=== PATIENT | female | born 2000 | race Caucasian/White ===

== ENCOUNTER 2023-01-29 12:56 | Outpatient (OUT) | payer OTHER, SELFPAY ==
[2023-01-29 14:20] LABS: Bilirubin Urine NEGATIVE (NEGATIVE); Blood Urine NEGATIVE (NEGATIVE); Clarity Urine CLEAR (CLEAR); Color Urine LT. YELLOW (YELLOW); Glucose Urine UA NEGATIVE (NEGATIVE); Ketones Urine NEGATIVE (NEGATIVE); Leukocyte Esterase Urine TRACE (NEGATIVE); Nitrite Urine NEGATIVE (NEGATIVE); Protein Urine NEGATIVE (NEG/TRACE); Specific Gravity Urine 1.015 (1.005-1.025); Urobilinogen Urine 0.2 EU/dL (0.2-1.0)
[2023-01-29 14:28] LABS: RBC Urine NONE SEEN #/HPF (0-2); WBC Urine 0-2 #/HPF (NONE SEEN)
--- NOTE | 2023-01-29 14:28 | PC.NURSE ---
Dr. Osman called and updated on patients presentation to hospital for abdominal cramping and lower back pain. patient reports drinking plenty of fluids. urinalysis reported. RN reports monitoring tracing and uterine activity. patient states pain gets worse with movement but is not constant. NORBERT- 03/22/2023
[2023-01-29 14:29] LABS: Bacteria Urine TRACE #/HPF (NONE SEEN); Mucus Urine NONE SEEN (NONE SEEN); Squamous Epithelial Cell Urine RARE #/LPF (NONE/RARE)
--- NOTE | 2023-01-29 14:31 | PC.NURSE ---
Dr. Osman gives orders to discharge patient home. Dr. Osman orders for patient to increase water intake and to start Miralax every day OTC. RN to educate patient.
[2023-01-29 15:04] VITALS: PULSE 70; RESP 18
== END 2023-01-29 15:05 ==
LOC: FBCO 13:03 → FBC 13:08
PROVIDERS: PCP Midwife; Visit Provider Obstetrics & Gynecology
DX: O99.891 Other specified diseases and conditions complicating pregnancy (principal); R10.9 Unspecified abdominal pain; M54.50 Low back pain, unspecified; Z3A.00 Weeks of gestation of pregnancy not specified
CPT/HCPCS: 59025; 81001

== ENCOUNTER 2023-03-19 17:45 | Inpatient (IN) | payer OTHER, SELFPAY ==
[2023-03-19] VITALS (14 sets, daily range): BP systolic 106–145; BP diastolic 54–80; PULSE 73–99; RESP 14–18; TEMP 36.5–36.8
[2023-03-19 19:06] LABS: Hematocrit 34.2 % (36.0-48.0); Hemoglobin 11.4 g/dL (12.0-16.0); Mean Corpuscular HGB Conc 33.3 g/dL (29.9-35.2); Mean Corpuscular Hemoglobin 27.1 pg (26.7-34.0); Mean Corpuscular Volume 81.4 fL (81.0-99.0); Mean Platelet Volume 9.7 fL (9.5-13.5); Platelet Count 250 10^3/uL (150-450); Red Cell Distribution Width 13.7 % (11.0-15.0); White Blood Count 7.8 10^3/uL (4.0-11.0)
[2023-03-19] MEDS: DINOPROSTONE 10 MG VAG INSERT.ER VAGINAL (19:08)
[2023-03-19 19:22] LABS: Amphetamine Screen Urine NEGATIVE (NEGATIVE); Barbiturates Screen Urine NEGATIVE (NEGATIVE); Benzodiazepines Screen Urine NEGATIVE (NEGATIVE); Buprenorphine Screen Urine NEGATIVE (NEGATIVE); Cannabinoid Screen Urine NEGATIVE (NEGATIVE); Cocaine Screen Urine NEGATIVE (NEGATIVE); Methadone Screen Urine NEGATIVE (NEGATIVE); Methamphetamines Screen Urine NEGATIVE (NEGATIVE); Opiate Screen Urine NEGATIVE (NEGATIVE); Oxycodone Screen Urine NEGATIVE (NEGATIVE); Phencyclidine Screen Urine NEGATIVE (NEGATIVE); Tricyclic Antidepressant Urine NEGATIVE (NEGATIVE)
--- NOTE | 2023-03-19 19:31 | W.PC.ACHO ---
Registration Status: ADM IN Primary Language: Beninese Preferred Language: Beninese Active Medications Generic Name Dose Route Start Last Admin Trade Name Jordy PRN Reason Stop Dose Admin Acetaminophen 1,000 mg 03/19/23 17:53 Acetaminophen 500 Mg Tablet PO Q6H PRN Pain Calcium Carbonate 500 mg 03/19/23 17:53 Calcium Carbonate 500 Mg (200mg Elemental) Tab Chew PO TID PRN Acid Reflux Sodium Chloride 1,000 mls @ 125 mls/hr 03/19/23 18:00 Sodium Chloride 0.9% 1,000 Ml IV .Q8H ZURDO Ampicillin 2,000 mg/ Sodium 100 mls @ 200 mls/hr 03/20/23 06:00 Chloride IV 03/20/23 06:29 ONCE ONE Oxytocin/Sodium Chloride 20 units in 1,000 mls @ 125 mls/hr 03/19/23 18:00 Pitocin 20 Unit/1,000 Ml-Ns IV 03/20/23 01:59 Q8H PRN Delivery Ampicillin 1,000 mg/ Sodium 50 mls @ 100 mls/hr 03/20/23 10:00 Chloride IV Q4H ZURDO Lidocaine 1 ml 03/19/23 17:48 Lidocaine Hcl 1% 200 Mg/20 Ml Mdv INJ ONCE PRN Pain Lidocaine 5 ml 03/19/23 17:48 Lidocaine Viscous 2% 15 Ml Solution TOPICAL ONCE PRN Pain Methylergonovine Maleate 0.2 mg 03/19/23 17:48 Methylergonovine Maleate 0.2 Mg/Ml Ampule IM 03/21/23 17:48 ONCE PRN Uterine Contractility/Contract Methylergonovine Maleate 0.2 mg 03/19/23 17:48 Methylergonovine Maleate 0.2 Mg Tablet PO 03/21/23 17:48 Q4H PRN Uterine Contractility/Contract Misoprostol 600 mcg 03/19/23 17:48 Misoprostol 100 Mcg Tablet PO 03/21/23 17:48 ONCE PRN Uterine Bleeding Misoprostol 800 mcg 03/19/23 17:48 Misoprostol 100 Mcg Tablet SL 03/21/23 17:48 ONCE PRN Uterine Bleeding Misoprostol 1,000 mcg 03/19/23 17:48 Misoprostol 100 Mcg Tablet AR 03/21/23 17:48 ONCE PRN Uterine Bleeding Ondansetron HCl 4 mg 03/19/23 17:48 Ondansetron Pf 4 Mg/2 Ml Vial IV Q6H PRN Nausea And Vomiting Ondansetron HCl 4 mg 03/19/23 17:48 Ondansetron 4 Mg Rapdis Tablet SL Q6H PRN Nausea And Vomiting Oxytocin 10 unit 03/19/23 17:48 Oxytocin 10 Unit/Ml Vial IM 03/21/23 17:48 ONCE PRN Hemorrhage Zolpidem Tartrate 5 mg 03/19/23 17:53 Zolpidem Tartrate 5 Mg Tablet PO HS PRN Sleep Diet Category Date Time Status Regular Consistency Diet Diet 03/20/23 Breakfast Active IV Insertion/Site Date of IV Line Insertion [ 03/19/23 left Forearm] IV Insertion Time [left 18:45 Forearm] Neurology Patient orientation (short person,place,time,situation list)
[2023-03-19] MEDS: CALCIUM CARBONATE 500 MG (200MG ELEMENTAL) TAB CHEW PO (22:14)
[2023-03-19] MEDS: ZOLPIDEM TARTRATE 5 MG TABLET PO (23:45)
[2023-03-19] MEDS: ACETAMINOPHEN 500 MG TABLET 1000 MG PO (23:45)
[2023-03-20] VITALS (57 sets, daily range): BP systolic 95–177; BP diastolic 50–100; PULSE 69–121; RESP 12–18; TEMP 36.4–37.3
[2023-03-20] MEDS: 0.9 % SODIUM CHLORIDE 1,000 ML 125 ML IV ×3 (04:45→08:19)
[2023-03-20] MEDS: ROPIVACAINE HCL/PF 400 MG/200 ML PREMIX 6 MG EPIDURAL (05:52)
[2023-03-20] MEDS: FENTANYL CITRATE/PF 100 MCG/2 ML VIAL EPIDURAL (05:55)
[2023-03-20] MEDS: LIDOCAINE HCL 2% PF 100 MG/5 ML VIAL INJ (06:02)
[2023-03-20] MEDS: AMPICILLIN SODIUM 2,000 MG in 0.9 % SODIUM CHLORIDE 100 ML 200 MG IV (06:03)
--- NOTE | 2023-03-20 08:01 | PM.EN ---
Event Note Event Note: to room to assess patient. she is laying on her left side, resting with eyes closed. Arouses easily. Doffing adjusted per this provider. EFM tracing reviewed. Baseline 130, no accels, no decels, moderate variability. IV infusing a bolus without difficulty. patient states she is comfortable with epidural and able to sleep. I will observe EFM tracing for 20 mins and if category 1 will perform AROM
--- NOTE | 2023-03-20 08:07 | PM.OBHP ---
OB - H&P: HPI History of Present Illness Chief complaint: INDUCTION : 1 Para: 0 Gestational age based on last menstrual period: 39.5 Indications for induction: other (elective induction ) History of Present Dating criteria: LMP confirmed by 1st trimester US care: good care Ultrasounds: normal 1st trimester US and normal mid trimester US complications: other (anxiety) Medical complications OB: none Labs Blood type: O (+) positive Rubella: immune RPR/VDLR: nonreactive GBS status: positive HBsAG: negative PFSH PFSH Medical History (Updated 03/20/23 @ 08:27 by PAIGE MOORE APRN, DION) Surgical History (Updated 03/19/23 @ 19:24 by Cherri Villalobos) Meds Home Medications and Allergies Home Medications Medication Instructions Recorded Confirmed Type vit no.95-ferrous 1 tab PO DAILY 01/29/23 01/29/23 History fumarate 28 mg-folic acid 800 mcg tablet ( Multivitamins) Allergies Allergy/AdvReac Type Severity Reaction Status Date / Time morphine Allergy Verified 01/29/23 13:35 sulfamethoxazole Allergy Rash Verified 01/29/23 13:35 [From Bactrim] trimethoprim [From Bactrim] Allergy Rash Verified 01/29/23 13:35 Exam Constitutional Vital Signs, click to edit/add: Last Vital Signs Temp 98 F 03/20/23 06:15 Pulse 81 03/20/23 08:04 Resp 16 03/20/23 06:15 BP 117/56 03/20/23 08:04 O2 Del Method Room Air 03/19/23 23:53 Documenting provider has reviewed patient's vital signs: yes Common normals: no apparent distress and oriented x3 Orientation/consciousness: Yes awake, Yes oriented to person, Yes oriented to place and Yes oriented to time HENMT Common normals: normocephalic Eye Common normals: EOMs intact bilaterally General eye: normal appearance of both eyes Neck & C-Spine Common normals: full ROM General: normal visual inspection Lymph Lymphatic: no lymphadenopathy noted Chest Common normals: inspection of chest normal Respiratory Common normals: normal respiratory effort Effort & inspection: able to speak in complete sentences Auscultation: clear to auscultation bilaterally Cardio Common normals: regular rate and regular rhythm Rate: regular rate Rhythm: regular rhythm GI Common normals: Normal to inspection, nondistended, normoactive bowel sounds present Back & Pelvis Common normals: no CVA tenderness Extremity Common normals: normal to inspection and full ROM Neuro Common normals: oriented x3 Sensorium/orientation: awake, alert, oriented to person, oriented to place and oriented to time Psych Common normals: mental status grossly normal, thought process normal and cooperative Results Labs Labs: Short CBC 03/19/23 Range/Units 18:30 WBC 7.8 (4.0-11.0) 10^3/uL Hgb 11.4 L (12.0-16.0) g/dL Hct 34.2 L (36.0-48.0) % Plt Count 250 (150-450) 10^3/uL OB - A/P Assessment and Plan (1) Term :
--- NOTE | 2023-03-20 08:38 | PM.EN ---
Event Note Event Note: SVE /-1 AROM attempted with no return of fluid. Patient states earlier she felt a pop and had some cloudy white fluid leak. I did not feel a bag of fluid and what looks like vernix present on my glove after exam.
[2023-03-20] MEDS: AMPICILLIN SODIUM 1,000 MG in 0.9 % SODIUM CHLORIDE 50 ML 100 MG IV (09:54)
[2023-03-20] MEDS: OXYTOCIN/0.9 % SODIUM CHLORIDE 10 UNITS/500 ML PLAST..BAG 6 UNIT IV (09:54)
[2023-03-20] MEDS: OXYTOCIN/0.9 % SODIUM CHLORIDE 20 UNITS/1,000 ML PLAST..BAG 125 UNIT IV (14:35)
[2023-03-20] MEDS: KETOROLAC TROMETHAMINE 30 MG/ML VIAL IVP (14:44)
[2023-03-20] MEDS: LIDOCAINE HCL 1% 200 MG/20 ML MDV INJ (14:46)
--- NOTE | 2023-03-20 15:18 | PM.OBPRCVD ---
Procedure Procedure: Intrapartal events: None Induction method: per pitocin protocol Delivery augmentation: pitocin Delivery monitor: external FHT and external uterine Route of delivery: Laceration description: labial (bilateral labial repair. Dr Meza called in for delivery for possible episiotomy and vaccum. Patient delivered while he was enroute. He performed repair of 2nd degree. bilateral labia repaired per CNM and small vag lac repaired by CNM x2 ) Delivery repair: Vicryl Estimated blood loss (mL): 400 Anesthesia type: Epidural Disposition: no change Infant Delivery date: 03/20/23 Gender: male presentation: vertex Placental delivery description: Spontaneous cord description: 3 Vessels heart rate - 1 minute: 100 bpm or Greater respiratory effort - 1 minute: Spontaneous/Strong Cry muscle tone - 1 minute: Active Movement reflex response - 1 minute: Prompt Response color - 1 minute: Bluish Hands or Feet total score - 1 minute: 9 heart rate - 5 minute: 100 bpm or Greater respiratory effort - 5 minute: Spontaneous/Strong Cry muscle tone - 5 minute: Active Movement reflex response - 5 minute: Prompt Response color - 5 minute: Bluish Hands or Feet total score - 5 minute: 9
[2023-03-20] MEDS: IBUPROFEN 400 MG TABLET 800 MG PO (22:27)
--- NOTE | 2023-03-20 22:38 | PC.NURSE ---
PT IS PUMPING FOR 15 MIN
[2023-03-21 00:48] VITALS: BP 111/54; PULSE 96
[2023-03-21 00:50] VITALS: BP 111/54; PULSE 96; RESP 16; TEMP 36.8
[2023-03-21 06:14] LABS: Basophils Percent Auto 0.3 % (0.2-2.0); Eosinophils Absolute Auto 0.1 10^3/uL (0.0-0.7); Eosinophils Percent Auto 0.4 % (0.9-7.0); Hemoglobin 9.6 g/dL (12.0-16.0); Immature Granulocytes Abs Auto 0.14 10^3/uL (0.00-0.03); Lymphocytes Absolute Auto 1.9 10^3/uL (1.2-3.8); Lymphocytes Percent Auto 14.4 % (20.5-60.0); Mean Corpuscular Volume 84.5 fL (81.0-99.0); Mean Platelet Volume 9.8 fL (9.5-13.5); Monocytes Absolute Auto 1.2 10^3/uL (0.3-0.8); Neutrophils Percent Auto 74.9 % (43.0-75.0); Platelet Count 235 10^3/uL (150-450); Red Blood Count 3.55 10^6/uL (4.20-5.40); Red Cell Distribution Width 14.3 % (11.0-15.0); White Blood Count 13.4 10^3/uL (4.0-11.0)
[2023-03-21 09:36] VITALS: BP 126/75; PULSE 106
[2023-03-21] MEDS: IBUPROFEN 400 MG TABLET 800 MG PO ×2 (09:38→17:22)
[2023-03-21] MEDS: DOCUSATE SODIUM 100 MG CAPSULE PO ×2 (09:39→21:31)
[2023-03-21 10:30] VITALS: RESP 14; TEMP 36.9
--- NOTE | 2023-03-21 12:00 | PC.NURSE ---
Pt has full breast, leaking copious colostrum. Nipples is everted and short in length. Able to latch baby in laid back position. sucks with swallows requiring stimulation. Nurses for 6 minutes collectively. Encouraged to stay s2s, and offer breast every hour. Verbalized understanding
--- NOTE | 2023-03-21 13:14 | P.DS_ITS ---
DS: Providers Provider Date of admission: 03/19/23 17:45 Primary care physician: PAIGE MOORE APRN, GIORGIM Admitting clinician: PAIGE MOORE Attending physician on admission: PAIGE MOORE Attending physician on discharge: PAIGE MOORE Discharging clinician: PAIGE MOORE Anticipated date of discharge: 03/22/23 DS: Diagnosis Discharge Diagnosis (1) Term : OB - DS: Summary Hospital Course Time spent discussing smoking cessation with patient: 3 to 10 minutes Peripartum Data - Vaginal Delivery Laceration description: labial Episiotomy Description: none Complications complications: none Infant Delivery method: spontaneous vaginal delivery Gender: male Discharge plan: home Status at Discharge Functional status at discharge: independent ambulation Overall status at discharge: patient is progressing back to baseline Time Spent with Patient Time attestation: Total time spent providing and/or coordinating discharge services: Time spent: less than 30 minutes Exam Constitutional Vital Signs, click to edit/add: Last Vital Signs Temp 98.4 F 03/21/23 10:30 Pulse 106 H 03/21/23 09:36 Resp 14 03/21/23 10:30 BP 126/75 03/21/23 09:36 O2 Del Method Room Air 03/21/23 00:50 DS: Data Data Completed and Pending Labs on day of discharge: Labs from last 24 hours 03/21/23 05:47 WBC 13.4 H RBC 3.55 L Hgb 9.6 L Hct 30.0 L MCV 84.5 MCH 27.0 MCHC 32.0 RDW 14.3 Plt Count 235 MPV 9.8 Neut % (Auto) 74.9 Lymph % (Auto) 14.4 L [place] % (Auto) 9.0 Eos % (Auto) 0.4 L Baso % (Auto) 0.3 Neut # (Auto) 10.0 H Lymph # (Auto) 1.9 [place] # (Auto) 1.2 H Eos # (Auto) 0.1 Baso # (Auto) 0.0 Abs Immat Gran (auto) 0.14 H Imm/Tot Granulo (auto) 1.0 H Discharge Plan Discharge Disposition: Home, Self-Care Condition: Good Discharge Medications: New Dermoplast (with menthol) 20-0.5 % Aerosol 1 spray topical Q2H PRN (Reason: Pain) 14 Days Qty: 56 2RF docusate sodium 100 mg Capsule 100 mg PO BID 30 Days Qty: 60 1RF A.E.RHansel Turner Tabitha 12.5-50 % Pads, Medicated 1 pad topical Q2H PRN (Reason: Pain) Qty: 40 0RF ibuprofen 400 mg Tablet 800 mg PO Q8H PRN (Reason: pain) 30 Days Qty: 60 1RF Continued PNV cmb#95-ferrous fumarate-FA [ Multivitamins] 28 mg iron- 800 mcg tablet 1 tab PO DAILY Forms: Portal Instructions
--- NOTE | 2023-03-21 13:15 | PM.OBPN ---
OB - PN: Subj Subjective Patient comments: no complaints, pain well controlled and other (states her repair is sore, but it feels ok with using the tucks, spray and motrin ) [place] infant status: doing well Exam Constitutional Vital Signs, click to edit/add: Last Vital Signs Temp 98.4 F 03/21/23 10:30 Pulse 106 H 03/21/23 09:36 Resp 14 03/21/23 10:30 BP 126/75 03/21/23 09:36 O2 Del Method Room Air 03/21/23 00:50 Documenting provider has reviewed patient's vital signs: yes Common normals: no apparent distress General appearance: cooperative Orientation/consciousness: Yes awake, Yes oriented to person, Yes oriented to place and Yes oriented to time HENMT Common normals: normocephalic Eye Common normals: PERRL Neck & C-Spine Common normals: full ROM Lymph Lymphatic: no lymphadenopathy noted Chest Common normals: inspection of chest normal Respiratory Common normals: normal respiratory effort Effort & inspection: able to speak in complete sentences Auscultation: clear to auscultation bilaterally Cardio Common normals: regular rate and regular rhythm Rate: regular rate Rhythm: regular rhythm GI Common normals: Normal to inspection, nondistended, normoactive bowel sounds present Auscultation: normoactive bowel sounds Common normals: no CVA tenderness Back & Pelvis Common normals: no CVA tenderness Extremity Common normals: normal to inspection Neuro Common normals: oriented x3 Psych Common normals: mental status grossly normal, thought process normal, cooperative, affect normal and speech normal Results Labs Labs: Short CBC 03/21/23 Range/Units 05:47 WBC 13.4 H (4.0-11.0) 10^3/uL Hgb 9.6 L (12.0-16.0) g/dL Hct 30.0 L (36.0-48.0) % Plt Count 235 (150-450) 10^3/uL OB - PN: A/P Assessment and Plan (1) Term : Plan - Vaginal Delivery day: 1 Plan: routine care Time Spent with Patient Time: Total time spent is greater than 50% in coordination of care (as documented) at patient's floor/unit and/or counseling patient: Total time spent with greater than 50% in coordination of care (as documented) at patient's floor/unit and/or counseling patient: less than 15 minutes
[2023-03-21 17:22] VITALS: BP 127/70; PULSE 91; TEMP 36.6
[2023-03-21 18:34] VITALS: RESP 16; TEMP 36.8
[2023-03-22] VITALS (7 sets, daily range): BP systolic 101–126; BP diastolic 58–78; PULSE 71–81; RESP 14–16; TEMP 36.7
[2023-03-22] MEDS: IBUPROFEN 400 MG TABLET 800 MG PO ×2 (01:56→08:29)
--- NOTE | 2023-03-22 07:15 | W.PC.ACHO ---
Registration Status: ADM IN Primary Language: Congolese Preferred Language: Congolese report given to Rupert CONCEPCION.Active Medications Generic Name Dose Route Start Last Admin Trade Name Freq PRN Reason Stop Dose Admin Acetaminophen 650 mg 03/20/23 15:25 Acetaminophen 325 Mg Tablet PO Q6H PRN Mild Pain Al Hydroxide/Mg Hydroxide 2,400 mg 03/20/23 15:25 Magnesium Hydroxide 2,400 Mg/10 Ml Oral.Susp PO Q6H PRN Dyspepsia Benzocaine/Menthol 1 applic 03/20/23 15:25 Benzocaine/Menthol 85 Gram [place] Bottle TOPICAL Q2H PRN Pain Calcium Carbonate 500 mg 03/19/23 17:53 03/19/23 22:14 Calcium Carbonate 500 Mg (200mg Elemental) Tab Chew PO 500 mg TID PRN Administration Acid Reflux Diphtheria/Pertussis/Tetanus Vacc 0.5 ml 03/22/23 09:00 Adacel Diph,Pertuss(Acell),Tet Vac/Pf 0.5 Ml Adult Syringe IM 03/22/23 09:01 .ONCE ONE Docusate Sodium 100 mg 03/21/23 09:00 03/21/23 21:31 Docusate Sodium 100 Mg Capsule PO 100 mg BID ZURDO Administration Sodium Chloride 1,000 mls @ 125 mls/hr 03/19/23 18:00 03/20/23 14:23 Sodium Chloride 0.9% 1,000 Ml IV Infused .Q8H ZURDO Infusion Ibuprofen 800 mg 03/21/23 17:00 03/22/23 01:56 Ibuprofen 400 Mg Tablet PO 03/22/23 22:00 800 mg Q8H ZURDO Administration Measles/Mumps/Rubella Vaccine Live 0.5 ml 03/22/23 09:00 Measles,Mumps,Rubella Vacc/Pf 0.5 Ml Vial SQ 03/22/23 09:01 .ONCE ONE Ondansetron HCl 4 mg 03/19/23 17:48 Ondansetron Pf 4 Mg/2 Ml Vial IV Q6H PRN Nausea And Vomiting Ondansetron HCl 4 mg 03/19/23 17:48 Ondansetron 4 Mg Rapdis Tablet SL Q6H PRN Nausea And Vomiting Senna 17.2 mg 03/20/23 20:00 Sennosides 8.6 Mg Tablet PO QHS PRN Constipation Simethicone 80 mg 03/20/23 15:25 Simethicone 80 Mg Tab.Chew PO QID PRN Abdominal Distention Temazepam 15 mg 03/20/23 15:25 Temazepam 15 Mg Capsule PO QHS PRN Sleep Witch Tabitha/Glycerin 1 pad 03/20/23 15:25 Glycerin/Witch Tabitha Pads TOPICAL Q2H PRN Pain Zolpidem Tartrate 5 mg 03/19/23 17:53 03/19/23 23:45 Zolpidem Tartrate 5 Mg Tablet PO 5 mg HS PRN Administration Sleep Respiratory Oxygen Delivery Method Room Air Bowels Date of Last Bowel Movement 03/21/23
--- NOTE | 2023-03-22 08:15 | P.OBPN_ITS ---
OB - PN: Subj Subjective Patient comments: no complaints and pain well controlled [place] status: doing well Exam Constitutional Vital Signs, click to edit/add: Last Vital Signs Temp 98.3 F 03/21/23 18:34 Pulse 71 03/22/23 08:14 Resp 14 03/22/23 00:05 BP 125/74 03/22/23 08:14 O2 Del Method Room Air 03/22/23 00:05 Documenting provider has reviewed patient's vital signs: yes Common normals: no apparent distress Respiratory Common normals: clear to auscultation bilaterally Cardio Common normals: regular rate and regular rhythm GI Common normals: Normal to inspection, nondistended, normoactive bowel sounds present Extremity Common normals: no clubbing, cyanosis or edema OB - PN: A/P Assessment and Plan (1) Term : Plan - Vaginal Delivery day: 2 Plan: routine care, discharge home and follow up 6 weeks Time Spent with Patient Time: Total time spent is greater than 50% in coordination of care (as documented) at patient's floor/unit and/or counseling patient: Total time spent with greater than 50% in coordination of care (as documented) at patient's floor/unit and/or counseling patient: less than 15 minutes
[2023-03-22] MEDS: DOCUSATE SODIUM 100 MG CAPSULE PO (08:29)
--- NOTE | 2023-03-22 13:45 | PC.NURSE ---
Ladan states latching becoming easier with practice and cooperative baby. Handles baby well. Reviewed handouts given yesterday and questions answered. Follow up visit scheduled for 03/26/23. Mom states is confident to be able to continue nursing until follow up. Numerous questions answered and referral to handout shown. Parents deny further questions.
[2023-03-22] MEDS: ADACEL DIPH,PERTUSS(ACELL),TET VAC/PF 0.5 ML ADULT SYRINGE IM (14:43)
== END 2023-03-22 15:00 | disposition home or self-care (01) | DRG 807 ==
PROVIDERS: Admitting Provider Midwife; PCP Midwife; Visit Provider Midwife
DX: O99.824 Streptococcus B carrier state complicating childbirth (principal); Z37.0 Single live birth; O99.344 Other mental disorders complicating childbirth; F41.9 Anxiety disorder, unspecified; O99.52 Diseases of the respiratory system complicating childbirth; J45.20 Mild intermittent asthma, uncomplicated; O70.0 First degree perineal laceration during delivery; Z3A.39 39 weeks gestation of pregnancy; Z88.2 Allergy status to sulfonamides; Z88.5 Allergy status to narcotic agent; Z90.49 Acquired absence of other specified parts of digestive tract
CPT/HCPCS: 36415; 51702; 59050; 59410; 80307; 85025; 85027; 86850; 86900; 86901; 90471; 90715; 96365; 96375; 96376

== ENCOUNTER 2023-03-26 08:40 | Outpatient (OUT) | payer OTHER, SELFPAY ==
--- NOTE | 2023-03-26 14:12 | PC.NURSE ---
Arrived for follow up. Parents admit to being tired but states doing well . continues to use shield for latching and feeding while mom states he acts like he doesn't want it . Parents report infant waking to feed every 2 hours with occasional 4 hour stretch for sleep. Parents states naps when baby sleeps. Reviewed outputs as normal as baby stools and voids with every feeding and wets in between feeds. Baby to breast after assessment. No shield used or offered. Baby latches with poor positioning and released latch. Better positioning demo'd and baby latches well and sustains sucking /swallowing on 2nd attempt. Latch and positioning reviewed and mom able to return demo independently. No further questions by parents at this time. Aware to all for concerns and of MOMS group 04/10/2023. States would like to attend for on going support.
[2023-03-26 14:13] VITALS: BP 113/77; PULSE 80; RESP 20; TEMP 36.9; O2SAT 96
--- NOTE | 2023-03-26 14:14 | PC.NURSE ---
Pt 6 days post . Asking about alcohol consumption and . Given handout for same. Advised to feed infant prior to alcohol intake and time feeding for at least 2 hours later. States will only have a celebratory drink with 21 yo brother and no more.
== END 2023-03-26 14:21 | disposition home or self-care (01) ==
LOC: FBCO 08:41
PROVIDERS: Visit Provider Midwife
DX: Z39.2 Encounter for routine postpartum follow-up (principal)

== ENCOUNTER 2023-04-02 20:41 | Emergency (ER) | payer OTHER, SELFPAY ==
[2023-04-02 20:47] VITALS: BP 126/85; PULSE 122; RESP 18; TEMP 37.3; O2SAT 97; BMI 33.3
--- NOTE | 2023-04-02 21:23 | ED.GENADUL1 ---
HPI - General Adult General Chief complaint: Fever Stated complaint: Post-operative complications Time Seen by Provider: 04/02/23 21:03 Source: patient Mode of arrival: walk-in History of Present Illness HPI narrative: 22-year-old female presents for fever and not feeling well. She states her fever was 103 degrees at home yesterday. She had vaginal delivery with episiotomy repair two weeks ago. Her symptoms started yesterday. she also complains of some soreness in her left breast as well as some mild redness. She states she's had some slight vaginal drainage as well. She has an appointment with her mortgage assistant tomorrow. No complaints of abdominal pain or vomiting. Related Data Home Medications Medication Instructions Recorded Confirmed vit no.95-ferrous 1 tab PO DAILY 01/29/23 01/29/23 fumarate 28 mg-folic acid 800 mcg tablet ( Multivitamins) Previous Rx's Medication Instructions Recorded benzocaine 20 %-menthol 0.5 % 1 spray topical Q2H PRN Pain 14 03/21/23 topical aerosol (Dermoplast (with days #56 grams menthol)) docusate sodium 100 mg capsule 100 mg PO BID 30 days #60 caps 03/21/23 glycerin-witch chepe 12.5 %-50 % 1 pad topical Q2H PRN Pain #40 ea 03/21/23 topical pads (A.E.R. Witch Chepe) ibuprofen 400 mg tablet 800 mg PO Q8H PRN pain 30 days #60 03/21/23 tabs amoxicillin 875 mg-potassium 1 tab PO BID #20 tabs 04/02/23 clavulanate 125 mg tablet Allergies Allergy/AdvReac Type Severity Reaction Status Date / Time morphine Allergy Verified 04/02/23 20:54 sulfamethoxazole Allergy Rash Verified 04/02/23 20:54 [From Bactrim] trimethoprim [From Bactrim] Allergy Rash Verified 04/02/23 20:54 Review of Systems ROS Narrative A ten point review of systems is negative except as noted above. 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 General: The patient appears well and in no apparent distress. Patient is resting comfortably on cart. Skin: Warm, dry, no pallor noted. There is no rash noted. Head: Normocephalic, atraumatic Eye: Normal conjunctiva, no drainage Ears, Nose, Mouth, and Throat: oral mucosa is moist. Nares patent. Cardiovascular: Regular Rate and Rhythm; left breast is examined. There is minimal erythema laterally. There is no nipple discharge and there is no localized swelling to suggest an abscess. Respiratory: Patient is in no distress, no accessory muscle use, lungs are clear to auscultation, no wheezing, rales or rhonchi Back: non-tender GI: soft and nontender : Episiotomy is healing well. There is no purulent drainage or erythema of the perineum. Musculoskeletal: The patient has no evidence of calf tenderness, no pitting edema, symmetrical pulses noted bilaterally Neurological: A&O, normal speech Psychiatric: Cooperative Constitutional Vital Signs, click to edit/add: Last Vital Signs Temp 99.6 F 04/02/23 22:21 Pulse 95 H 04/02/23 22:21 Resp 16 04/02/23 22:21 BP 126/85 04/02/23 20:47 Pulse Ox 97 04/02/23 22:21 O2 Del Method Room Air 04/02/23 20:47 Course Vital Signs Vital signs: Vital Signs Temperature 99.2 F 04/02/23 20:47 Pulse Rate 122 H 04/02/23 20:47 Respiratory Rate 18 04/02/23 20:47 Blood Pressure 126/85 04/02/23 20:47 Pulse Oximetry 97 04/02/23 20:47 Oxygen Delivery Method Room Air 04/02/23 20:47 Temperature 99.6 F 04/02/23 22:21 Pulse Rate 95 H 04/02/23 22:21 Respiratory Rate 16 04/02/23 22:21 Blood Pressure 126/85 04/02/23 20:47 Pulse Oximetry 97 04/02/23 22:21 Oxygen Delivery Method Room Air 04/02/23 20:47 Medical Decision Making MDM Narrative Medical decision making narrative: labs including WBC are normal. She started on Augmentin tonight and she'll see her nurse mortgage assistant tomorrow. Treatment diagnosis and follow-up were discussed with the patient. Differential Diagnosis Differential Diagnosis: mastitis, wound dehiscence Lab Data Lab results reviewed: Yes I reviewed the patient's lab results Labs: Lab Results 04/02/23 Range/Units 21:00 WBC 7.2 (4.0-11.0) 10^3/uL RBC 4.14 L (4.20-5.40) 10^6/uL Hgb 11.1 L (12.0-16.0) g/dL Hct 34.7 L (36.0-48.0) % MCV 83.8 (81.0-99.0) fL MCH 26.8 (26.7-34.0) pg MCHC 32.0 (29.9-35.2) g/dL RDW 14.6 (11.0-15.0) % Plt Count 344 (150-450) 10^3/uL MPV 8.8 L (9.5-13.5) fL Neut % (Auto) 80.8 H (43.0-75.0) % Lymph % (Auto) 9.4 L (20.5-60.0) % [place] % (Auto) 6.8 (1.7-12.0) % Eos % (Auto) 2.0 (0.9-7.0) % Baso % (Auto) 0.4 (0.2-2.0) % Neut # (Auto) 5.8 (1.4-6.5) 10^3/uL Lymph # (Auto) 0.7 L (1.2-3.8) 10^3/uL [place] # (Auto) 0.5 (0.3-0.8) 10^3/uL Eos # (Auto) 0.1 (0.0-0.7) 10^3/uL Baso # (Auto) 0.0 (0.0-0.1) 10^3/uL Abs Immat Gran (auto) 0.04 H (0.00-0.03) 10^3/uL Imm/Tot Granulo (auto) 0.6 H (0.0-0.5) % Sodium 133 L (136-145) mmol/L Potassium 3.7 (3.5-5.1) mmol/L Chloride 102 (98-107) mmol/L Carbon Dioxide 21.5 (21.0-32.0) mmol/L Anion Gap 13.2 BUN 10.0 (7.0-18.0) mg/dL Creatinine 0.96 (0.55-1.02) mg/dL Est GFR ( Amer) >60 (>=60) Est GFR (Non-Af Amer) >60 (>=60) BUN/Creatinine Ratio 10.4 Glucose 103 (74-106) mg/dL Calcium 8.5 (8.5-10.1) mg/dL Discharge Plan Discharge Chief Complaint: Fever Clinical Impression: Mastitis Patient Disposition: Home, Self-Care Time of Disposition Decision: 22:38 Condition: Good Mode of Transportation: Private Vehicle Prescriptions / Home Meds: New amoxicillin-pot clavulanate 875-125 mg tablet 1 tab PO BID Qty: 20 0RF No Action PNV cmb#95-ferrous fumarate-FA [ Multivitamins] 28 mg iron- 800 mcg tablet 1 tab PO DAILY Dermoplast (with menthol) 20-0.5 % Aerosol 1 spray topical Q2H PRN (Reason: Pain) 14 Days Qty: 56 2RF docusate sodium 100 mg Capsule 100 mg PO BID 30 Days Qty: 60 1RF A.E.R. Witch Chepe 12.5-50 % Pads, Medicated 1 pad topical Q2H PRN (Reason: Pain) Qty: 40 0RF ibuprofen 400 mg Tablet 800 mg PO Q8H PRN (Reason: pain) 30 Days Qty: 60 1RF Instructions: Mastitis (ED) Additional Instructions: keep your appointment with Lulú tomorrow Stand Alone Forms: Portal Instructions Referrals: Physician,Non-Staff, MD [Primary Care Provider] - 1 week
[2023-04-02 21:50] LABS: Basophils Percent Auto 0.4 % (0.2-2.0); Eosinophils Absolute Auto 0.1 10^3/uL (0.0-0.7); Hematocrit 34.7 % (36.0-48.0); Hemoglobin 11.1 g/dL (12.0-16.0); Immature Granulocytes Abs Auto 0.04 10^3/uL (0.00-0.03); Immature Granulocytes Pct Auto 0.6 % (0.0-0.5); Lymphocytes Absolute Auto 0.7 10^3/uL (1.2-3.8); Lymphocytes Percent Auto 9.4 % (20.5-60.0); Mean Corpuscular Hemoglobin 26.8 pg (26.7-34.0); Mean Corpuscular Volume 83.8 fL (81.0-99.0); Mean Platelet Volume 8.8 fL (9.5-13.5); Monocytes Absolute Auto 0.5 10^3/uL (0.3-0.8); Monocytes Percent Auto 6.8 % (1.7-12.0); Neutrophils Absolute Auto 5.8 10^3/uL (1.4-6.5); Neutrophils Percent Auto 80.8 % (43.0-75.0); Platelet Count 344 10^3/uL (150-450); Red Blood Count 4.14 10^6/uL (4.20-5.40); Red Cell Distribution Width 14.6 % (11.0-15.0); White Blood Count 7.2 10^3/uL (4.0-11.0)
[2023-04-02 22:04] LABS: Anion Gap 13.2; BUN Creatinine Ratio 10.4; Calcium 8.5 mg/dL (8.5-10.1); Carbon Dioxide 21.5 mmol/L (21.0-32.0); Chloride 102 mmol/L (98-107); Estimated GFR (African America >60 (>=60); Estimated GFR (Non-African Ame >60 (>=60); Glucose 103 mg/dL (74-106); Potassium 3.7 mmol/L (3.5-5.1); Sodium 133 mmol/L (136-145)
[2023-04-02 22:21] VITALS: PULSE 95; RESP 16; TEMP 37.6; O2SAT 97
[2023-04-02] MEDS: IBUPROFEN 400 MG TABLET 800 MG PO (22:34)
[2023-04-02] MEDS: AMOXICILLIN/POTASSIUM CLAV 1 TAB TABLET PO (23:01)
== END 2023-04-02 23:15 | disposition home or self-care (01) ==
PROVIDERS: Emergency Provider Emergency Medicine
DX: O91.22 Nonpurulent mastitis associated with the puerperium (principal)
CPT/HCPCS: 36415; 80048; 85025; 99284